=== PATIENT | female | born 1985 ===

== ENCOUNTER 2023-08-11 10:18 | Outpatient (CLI) | payer OTHER | END 2023-08-11 10:34 | disposition home or self-care (01) | LOC: TOM 10:18 | DX: M25.511 Pain in right shoulder (principal); R22.1 Localized swelling, mass and lump, neck ==

== ENCOUNTER 2023-12-01 10:01 | Outpatient (CLI) | payer OTHER | END 2023-12-01 12:40 | disposition home or self-care (01) | LOC: RAD 10:01 | PROVIDERS: ATTEND Physical Medicine & Rehabilitation | DX: M25.811 Other specified joint disorders, right shoulder (principal); M25.579 Pain in unspecified ankle and joints of unspecified foot ==

== ENCOUNTER 2025-04-05 13:28 | Outpatient (CLI) | payer OTHER | END 2025-04-05 13:30 | disposition home or self-care (01) | LOC: MRI 13:28 | PROVIDERS: ATTEND Orthopaedic Surgery | DX: M54.50 Low back pain, unspecified (principal) | CPT/HCPCS: 72148 ==